=== PATIENT | female | born 1950 | race Two or more races ===

== ENCOUNTER 2023-03-05 13:51 | Inpatient (IN) | payer OTHER ==
[~2023-03-05] VITALS: Ht 170.2 cm; Wt 90.7 kg
--- NOTE | 2023-03-05 14:25 | NUR ---
SE RECIBE PTE ALERTA Y ORIETNADA X3 EN AMBULANCIA DE TRAN[facility]ER DE [facility] POR FIBRILACION ATRIAL. SE MIDEN S/V A PTE, PTE SE COLOCA EN UNIDAD DE CHEST PAIN. SE REALIZA EKG, SE COLOCA H/L EDUARDO DE EDEMA Y SE CONECTA A MONITOR CARDIACO CON OXIMETRIA CONTINUA.
--- NOTE | 2023-03-05 15:53 | NUR ---
3:00PM SE RECIBE PTE ALERTA Y ORIENTADA X3 EN AREA DE CHEST PAIN EN CAMA BAJA CON BARANDAS ELEVADAS Y SEMI-JARAMILLO POSITION. PTE CONECTADA A MONITOR CARDIACO, SATUROMETRO Y CANULA A 2LT, SAT:100%. PTE CANALIZADA X2 EN BRAZO DERECHO CON ANGIOS #18 PATENTES EDUARDO DE EDEMA Y ENROJECIMIENTO. RECIBIENDO CARDIZEM 100MG/100ML BAJANDO A 3ML/HR. PTE MO REFIERES NI QUEJAS NI MOLESTIA AL MOMENTO. SE MANTIENE EN OBSERVACION POR TRATAMIENTO.
[2023-03-16] MEDS ORDERED: LIPITOR40 M1 PO (10:32)
[2023-03-16] MEDS ORDERED: LOPRESSOR25 MG PO (10:32)
[2023-03-16] MEDS ORDERED: Procardia Xl 30MG TA PO (10:32)
[2023-03-16] MEDS ORDERED: AMIODARONE HCL200 MG PO (10:32)
[2023-03-16] MEDS ORDERED: GABAPENTIN800 MG PO (10:33)
[2023-03-16] MEDS ORDERED: INSULIN LI100 UNIT/1 SUBCUTANEO (10:33)
[2023-03-16] MEDS ORDERED: Lantus 1000 UNITS/10 SUBCUTANEO (10:33)
[2023-03-16] MEDS ORDERED: ELIQUIS2.5 MG PO (10:35)
[2023-03-16] MEDS ORDERED: INTEGRA PLUS C1 EACH PO (10:36)
[2023-03-16] MEDS ORDERED: PROTONIX40 MG PO (10:36)
== END 2023-03-16 13:17 | disposition home or self-care (01) | DRG 308 ==
LOC: ER 13:51 → ICU-2 19:50 → MEDI 19:50 → ICU 03-07 03:09 → MEDI 03-08 17:40
PROVIDERS: General Practice; Internal Medicine; ADMIT Internal Medicine; ATTEND Internal Medicine
PROC: BT4JZZZ Ultrasonography of Kidneys and Bladder (ICD-10-PCS; principal; 2023-03-05)
PROC: B24BYZZ Ultrasonography of Heart with Aorta using Other Contrast (ICD-10-PCS; 2023-03-05)
PROC: 4A12X4Z Monitoring of Cardiac Electrical Activity, External Approach (ICD-10-PCS; 2023-03-08)
DX: I48.0 Paroxysmal atrial fibrillation (principal); I50.21 Acute systolic (congestive) heart failure; I13.0 Hypertensive heart and chronic kidney disease with heart failure and stage 1 through stage 4 chronic kidney disease, or unspecified chronic kidney disease; N17.8 Other acute kidney failure; N18.9 Chronic kidney disease, unspecified; D15.1 Benign neoplasm of heart; E11.22 Type 2 diabetes mellitus with diabetic chronic kidney disease; E11.65 Type 2 diabetes mellitus with hyperglycemia; E11.42 Type 2 diabetes mellitus with diabetic polyneuropathy; E78.5 Hyperlipidemia, unspecified; Z79.84 Long term (current) use of oral hypoglycemic drugs; Z79.4 Long term (current) use of insulin

== ENCOUNTER 2023-08-25 07:22 | Outpatient (CLI) | payer OTHER ==
[~2023-08-25 07:22] MED LIST: AMIODARONE HCL200 MG PO; ELIQUIS2.5 MG PO; GABAPENTIN800 MG PO; INSULIN LI100 UNIT/1 SUBCUTANEO; INTEGRA PLUS C1 EACH PO; LIPITOR40 M1 PO; LOPRESSOR25 MG PO; Lantus 1000 UNITS/10 SUBCUTANEO; PROTONIX40 MG PO; Procardia Xl 30MG TA PO
== END 2023-08-25 07:33 | disposition home or self-care (01) ==
LOC: NUCLEAR 07:22
PROVIDERS: ATTEND Internal Medicine
DX: I11.0 Hypertensive heart disease with heart failure (principal); I50.1 Left ventricular failure, unspecified
CPT/HCPCS: 78452; 93017; A9500; J0153